=== PATIENT | male | born 1960 | race Caucasian/White ===

== ENCOUNTER → 2017-05-05 | Day surgery (SDC) | payer OTHER ==
[~2017-05-05] MED LIST: ACETAMINOPHEN 1,000 MG/100 ML BTL IV ONE; BUPIVACAINE 0.75% W/EPI MPF 30ML VIAL IVP ONE; CEFAZOLIN 1G VIAL IM ONE; FAMOTIDINE 20MG TABLET PO ONE; HYDROMORPHONE HCL 2 MG/ML VIAL IV ONE; LIDOCAINE 1% W/EPI 1:200,000 MPF 30ML SQ ONE; LIDOCAINE 2% MDV (20MG/ML) 20ML VIAL IV ONE; MECLIZINE 25 MG TABLET PO ONE; METOCLOPRAMIDE 10 MG TABLET PO ONE; MIDAZOLAM HCL 2MG/2ML VIAL IV ONE; PROPOFOL 10 MG/ML VIAL IV ONE; SUFENTANIL CITRATE 50 MCG/ML AMPUL IV ONE; VANCOMYCIN HCL 1,000 MG in 0.9 % SODIUM CHLORIDE 250ML 250 ML IVPB ONE
--- NOTE | 2017-05-05 05:41 | History and Physical Report ---
DATE: 05/04/2017. CHIEF COMPLAINT AND HISTORY OF CHIEF COMPLAINT: This patient presents with a history of a postlumbar laminectomy radiculitis. On 04/13/2016 a spinal cord stimulator was implanted. Although initially this appeared to be doing quite well with respect to his pain, a series of events have resulted in increasing amounts of breakthrough pain. He was evaluated surgically with recommendations of no further spinal surgery but consideration for spinal infusion device or pump. He is here for removal of the stimulator for possible pump implant. PAST MEDICAL HISTORY: Asthmatic bronchitis. PAST SURGICAL HISTORY: Facial surgery, hernia repair, lumbar spinal surgery, stimulator implant. MEDICATIONS ON ADMISSION: To be provided. ALLERGIES: To be provided. FAMILY HISTORY: Asthma, diabetes, hypertension, cancer. SOCIAL HISTORY: Caffeine and smoking. REVIEW OF SYSTEMS: The patient seems appropriate and in no acute distress. The remainder of the systems review shows glasses, dentures, breathing difficulties, degenerative arthritis. PHYSICAL EXAMINATION: General: Height is 5 feet, 9 inches. Weight is 200 pounds. Vital Signs: Not available. HEENT: Within normal limits. Lungs: Clear. Heart: Regular rate and rhythm. Abdomen: Nontender. Musculoskeletal: Examination of the musculoskeletal system shows diffuse tenderness in the lumbar spine with an adjacent laminectomy scar. Range of motion does produce pain moving into both legs, somewhat more right than left. Motor and sensory field function is somewhat difficult to assess on the right and is appropriate and normal on the left. Ambulation: No assistive device utilized. Neurologic: Cranial nerves are intact. IMPRESSION: 1. POSTLUMBAR LAMINECTOMY SYNDROME, ICD-10 CODE M96.1. 2. LUMBAR RADICULITIS, ICD-10 CODE M54.16 AND M54.17. 3. SPINAL CORD STIMULATOR INTERNAL GENERATOR NONFUNCTIONAL. PLAN: The patient is here for removal of a two-lead spinal cord stimulator internal generator. The incisional sites, including the generator at the left posterior gluteal margin, appear to be intact. We will remove the devices on an outpatient basis. All other potential risks, side effects, and complications were reviewed and discussed. JOB NUMBER: [id number] cc: KLAUDIA Pires
--- NOTE | 2017-05-08 07:21 | Operative Note - Ferro ---
DATE OF SURGERY: 05/05/2017. PREOPERATIVE DIAGNOSIS: 1. POSTLUMBAR LAMINECTOMY SYNDROME, ICD-10 CODE M96.1. 2. LUMBAR RADICULITIS, ICD-10 CODE M54.16 AND M54.17. 3. SPINAL CORD STIMULATOR INTERNAL GENERATOR NONFUNCTIONAL. POSTOPERATIVE DIAGNOSIS: 1. POSTLUMBAR LAMINECTOMY SYNDROME, ICD-10 CODE M96.1. 2. LUMBAR RADICULITIS, ICD-10 CODE M54.16 AND M54.17. 3. SPINAL CORD STIMULATOR INTERNAL GENERATOR NONFUNCTIONAL. OPERATION: 1. Incision, subcutaneous dissection, and removal of two implanted spinal cord stimulators. 2. Incision, subcutaneous dissection, and removal of internal generator with connectors. SURGEON: Kenneth Pisano D.O. ANESTHESIA: Local sedation. ANESTHESIA PROVIDER: Tramaine Hines CRNA INDICATION: This patient presents with a history an intractable postlaminectomy radiculitis. He had a spinal cord stimulator implanted a number of years previous. Although it successfully controlled his pain over the last number of months, it failed to appreciably control his primary symptoms. Despite multiple attempts at reprogramming on a conservative level, we were unsuccessful in gaining better stimulation and pain control. He is being considered a possible candidate for a spinal opioid infusion system or pump. He is here for removal of a nonfunctional stimulator and generator. PROCEDURE: Intravenous line, vital sign monitoring, and intravenous sedation. Prepped and draped with sterile technique. The midline incision for the stimulator was infiltrated with local. An incision was made and subcutaneous dissection was conducted to the leads and their anchors. The leads and anchors along with suture were removed intact. At the generator pouch at the left posterior gluteal margin the skin was infiltrated. An incision was made and subcutaneous dissection was conducted to the generator pouch. The generator pouch was opened, and the generator was removed along with its connections. Antibiotic irrigation and Bovie for hemostasis. The incisions were then closed with Vicryl for the fascia and running subcuticular Vicryl for the skin. A Dermabond closure was used to approximate the edges of the wound. He was transported to the recovery room stable, showing no side effects from the procedure or the sedation. When fully awake and alert, he was prepared for discharge. DISCHARGE INSTRUCTIONS: 1. The sites are to remain clean and dry. No showering or bathing in any way that would disrupt dressings. If this happens, contact the clinic. 2. Standard medications are to be resumed including Levaquin the antibiotic 500 mg once a day for 14 days. 3. A prescription was written for an analgesic, [place] 7.5/325 mg, maximum 6 per day, for 1 month. 4. All other instructions were provided, and numbers to contact with problems were given. He was then prepared for discharge. JOB NUMBER: [id number] cc: KLAUDIA Pires
== END | disposition home or self-care (01) ==
LOC: SUR 12:22
PROVIDERS: ATTEND Pain Medicine Interventional Pain Medicine
DX: T85.193A Other mechanical complication of implanted electronic neurostimulator, generator, initial encounter (principal); T85.192A Other mechanical complication of implanted electronic neurostimulator of spinal cord electrode (lead), initial encounter; M96.1 Postlaminectomy syndrome, not elsewhere classified; M54.16 Radiculopathy, lumbar region; M54.17 Radiculopathy, lumbosacral region; E78.00 Pure hypercholesterolemia, unspecified
CPT/HCPCS: 93005; 93010; 63661; 63688; 00300; J3370; J1170; J3490; J0690; J7050

== ENCOUNTER 2017-09-06 13:08 | Day surgery (SDC) | payer OTHER ==
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
[~2017-09-06 13:08] MED LIST changes: -BUPIVACAINE 0.75% W/EPI MPF 30ML VIAL IVP ONE; -CEFAZOLIN 1G VIAL IM ONE; -HYDROMORPHONE HCL 2 MG/ML VIAL IV ONE; +HYDROMORPHONE PF 2MG/ML AMP 0.008 MG in 0.9 % SODIUM CHLORIDE 10ML VIA 0.996 ML IV ONE; +HYDROMORPHONE PF 2MG/ML AMP 4 MG in 0.9 % SODIUM CHLORIDE 500ML 498 ML IV ONE; -LIDOCAINE 1% W/EPI 1:200,000 MPF 30ML SQ ONE; -LIDOCAINE 2% MDV (20MG/ML) 20ML VIAL IV ONE; -MIDAZOLAM HCL 2MG/2ML VIAL IV ONE; -PROPOFOL 10 MG/ML VIAL IV ONE; -SUFENTANIL CITRATE 50 MCG/ML AMPUL IV ONE; -VANCOMYCIN HCL 1,000 MG in 0.9 % SODIUM CHLORIDE 250ML 250 ML IVPB ONE; +VANCOMYCIN HCL 1,000 MG in DEXTROSE 5 % IN WATER 250 ML IVPB ONE
[2017-09-06] MEDS ORDERED: PROPOFOL 10 MG/ML VIAL IV ONE (13:09)
[2017-09-06] MEDS ORDERED: HYDROMORPHONE HCL 2 MG/ML VIAL IV ONE (13:09)
[2017-09-06] MEDS ORDERED: LIDOCAINE 2% MDV (20MG/ML) 20ML VIAL IV ONE (13:09)
[2017-09-06] MEDS ORDERED: LIDOCAINE 1% W/EPI 1:200,000 MPF 30ML SQ ONE (13:09)
[2017-09-06] MEDS ORDERED: BUPIVACAINE 0.5% W/EPI MPF 30 ML VIAL IVP ONE (13:09)
[2017-09-06] MEDS ORDERED: FENTANYL PF 100MCG/2ML VIAL IV ONE (13:09)
[2017-09-06] MEDS ORDERED: MIDAZOLAM HCL 2MG/2ML VIAL IV ONE (13:09)
[2017-09-06] MEDS ORDERED: CEFAZOLIN 1G VIAL IM ONE (13:09)
[2017-09-06] MEDS ORDERED: *PACU ONLY* KETAMINE HCL 10 MG/ML (20ML) VIAL IV ONE (13:09)
[2017-09-06] MEDS ORDERED: DIPHENHYDRAMINE HCL 25 MG CAPSULE PO PRN ×2 (16:57)
[2017-09-06] MEDS ORDERED: HYDROMORPHONE HCL 2 MG/ML VIAL IM PRN ×2 (16:57)
[2017-09-06] MEDS ORDERED: SENNOSIDES/DOCUSATE SODIUM UD CAPSULE PO PRN ×2 (16:57)
[2017-09-06] MEDS ORDERED: ACETAMINOPHEN 325 MG TAB PO PRN ×2 (16:57)
[2017-09-06] MEDS ORDERED: METOCLOPRAMIDE HCL 10 MG/2 ML VIAL IVP PRN (16:57)
[2017-09-06] MEDS ORDERED: TEMAZEPAM 15 MG CAPSULE PO PRN ×2 (16:57)
[2017-09-06] MEDS ORDERED: DIPHENHYDRAMINE HCL IV 50 MG/ML VIAL IVP PRN ×2 (16:57)
[2017-09-06] MEDS ORDERED: HYDROCODONE/APAP 7.5/325MG TABLET PO PRN (16:57)
[2017-09-06] MEDS ORDERED: AL HYDROX/MAG HYDROX 30ML UD PO PRN (16:57)
[2017-09-06] MEDS ORDERED: METOCLOPRAMIDE 10 MG TABLET PO PRN (16:57)
[2017-09-06] MEDS ORDERED: OXYCODONE/APAP 10MG-325MG TABLET PO PRN ×2 (16:57)
[2017-09-06] MEDS ORDERED: NALOXONE 0.4 MG/1 ML VIAL IVP PRN (16:58)
[2017-09-06] MEDS ORDERED: CYCLOBENZAPRINE 10MG TABLET PO PRN (16:59)
[2017-09-06] MEDS: RINGERS SOLUTION,LACTATED 1,000 ML IV SCH (19:21)
--- NOTE | 2017-09-06 19:40 | Operative Note - Ferro ---
DATE OF SURGERY: 09/06/17 PREOPERATIVE DIAGNOSIS: 1. POST LUMBAR LAMINECTOMY SYNDROME, ICD-10 CODE = M96.1. 2. LUMBAR RADICULOPATHY, ICD-10 CODE = M54.16 AND M54.17. SURGERY: 1. FLUOROSCOPIC-GUIDED SPINAL ACCESS AT L3-4. PLACEMENT OF THIN-WALLED SPINAL CATHETER T11-12. 2. DIAGNOSTIC MYELOGRAPHY WITH RADIOLOGIC SUPERVISION AND INTERPRETATION. 3. BOLUS HYDROMORPHONE THROUGH SPINAL CATHETER 0.002 MG SPINAL SPACE. 4. INCISION, SUBCUTANEOUS DISSECTION, AND ANCHORING OF SPINAL CATHETER TO SUPRASPINOUS FASCIA WITH ANCHORING DEVICE AND NONABSORBABLE SUTURE. 5. INCISION, SUBCUTANEOUS DISSECTION, AND CREATION OF SUBCUTANEOUS POUCH AT RIGHT POSTERIOR GLUTEAL MARGIN, A SITE PICKED BY PATIENT FOR THE PROBABLE PUMP IMPLANT. 6. TUNNELING OF MIDLINE SPINAL CATHETER INTO POSTERIOR POUCH, INTERFACE SPINAL CATHETER AT POUCH WITH SECOND CATHETER COMPONENT BY WAY OF CONNECTOR. 7. TUNNELING OF SECONDARY CATHETER COMPONENT 6 CM SUPERIOR EXITING THE SKIN. EXTERNAL CATHETER INTERFACED TO EXTERNAL PUMP SET TO DELIVER HYDROMORPHONE AT 0.08 MG A DAY. 8. CLOSURE OF MIDLINE INCISION WITH VICRYL FOR FASCIAL AND RUNNING SUBCUTICULAR VICRYL FOR SKIN, CLOSURE OF POSTERIOR GLUTEAL POUCH WITH RUNNING NYLON. 9. PLACEMENT OF DRESSING SECURING CATHETER AND ALL CONNECTIONS UNDER STERILE DRESSING. PATIENT TRANSPORTED TO THE RECOVERY ROOM FLAT, PILLOW UNDER HEAD AND KNEES. SURGEON: JUVENTINO MAIN D.O. ANESTHESIA: LOCAL SEDATION. ANESTHESIA PROVIDER: ANAHI ELAM CRNA INDICATIONS: This patient presents with a history of intractable lumbar radiculopathy, which is a post laminectomy syndrome. He has three levels of hardware fusion. Due to the failure of therapy, he is here for a spinal opioid infusion trial to determine if the implantation of a permanent system can be of any value in his pain control. SURGERY: Intravenous line, vital sign monitoring, IV sedation, prepped and draped in sterile technique, patient prone. The spinal interspace at L3-4 was marked, under imaging, skin infiltrated, then a #20 gauge spinal needle beveled with the long axis in a paramedian approach was used to gain entry into the spinal space, under imaging with AP and lateral views. The needle was advanced into the spinal space on the lateral view. With CSF flow, a thin-walled spinal catheter was advanced and the needle positioned at T11-12. Diagnostic myelography was performed. The resulting flow characteristics were smoothly into the space confirming appropriate flow and spinal appropriate characteristics. With this confirmation, a bolus of Hydromorphone at 0.002 mg was given. CSF was still noted coming through the catheter. The catheter was clamped. This stopped CSF leak. The skin above and below the needle infiltrated , incision made, and subcutaneous dissection was conducted to the supraspinous fascia. The needle was removed and the catheter anchored to the supraspinous fascia with an anchoring device and nonabsorbable suture. At the right posterior gluteal margin, a site picked by the patient ultimately for the placement of the pump, skin infiltrated, incision made, and subcutaneous dissection was conducted to form a pouch of suitable depth. A tunneling tool was then used to carry the spinal catheter into the posterior pouch and then the spinal catheter was interfaced with a second catheter component by way of a connector. This second catheter component was tunneled 6 cm superior from this pouch exiting the skin. The external catheter was then interfaced with an external pump set to deliver Hydromorphone at 0.08 mg a day. Once the incisions were closed, the sterile dressing was placed securing the catheter and all connections under sterile dressing. No blood patch was performed. He was transported to the Recovery Room flat, pillow under head and knees and will be monitored flat for four hours and slowly elevated for one. He will have appropriate fluid volume maintained throughout the night. He will stay overnight for observation. DISCHARGE INSTRUCTIONS IN THE MORNIN. The sites to remain clean and dry. No showering or bathing in any way that would disrupt dressings. If it happens, contact the clinic. 2. Standard medications resumed, including Levaquin the antibiotic 500 mg once a day for 14 days. 3. The trial will run 14 days. During this period of time, we will set up three increases, the first within the next two to three days. 4. Spinal opioid side-effects including respiratory depression, nausea, vomiting, constipation, urinary retention, lightheadedness or rash have all been discussed and reviewed. If he develops a spinal headache, he should stay flat and encourage fluids including caffeinated beverages. All other instructions provided, numbers to contact if problems given. He will be discharged in the morning. cc: Jac Pete NP JOB NUMBER: [id number] [facility]
[2017-09-06] MEDS ORDERED: ATORVASTATIN 20 MG TABLET PO SCH (22:00)
[2017-09-07] MEDS: HYDROCODONE/APAP 7.5/325MG TABLET PO PRN ×2 (00:05→06:44)
[2017-09-07] MEDS: RINGERS SOLUTION,LACTATED 1,000 ML IV SCH (00:09)
[2017-09-07] MEDS ORDERED: VANCOMYCIN HCL 1,000 MG in DEXTROSE 5 % IN WATER 250 ML IVPB ONE ×2 (03:00)
--- NOTE | 2017-09-07 20:53 | RADIOLOGY REPORT ---
EXAM: SPINE, 1 VIEW HISTORY: STATUS POST PUMP TRIAL. TECHNIQUE: Single frontal view of the lumbar spine. COMPARISON: Lumbar spine x-ray 04/13/2016. FINDINGS: The spinal catheter has been removed in the interim. Spinal rods and laminectomies of the lower lumbar spine again noted. Soft tissues are unremarkable. JOB NUMBER: [id number] MTDD
== END 2017-09-07 09:15 | disposition home or self-care (01) ==
LOC: SUR 13:08 → MEDSURG 18:41 → SUR 09-07 09:15
PROVIDERS: ATTEND Pain Medicine Interventional Pain Medicine
DX: M96.1 Postlaminectomy syndrome, not elsewhere classified (principal); M54.16 Radiculopathy, lumbar region; M54.17 Radiculopathy, lumbosacral region; E78.00 Pure hypercholesterolemia, unspecified
CPT/HCPCS: 62350; 62362; 01936; 72020; Q9967; J3370; J3010; J1170 ×2; J0690; J7040; J7060; J7120

== ENCOUNTER 2017-09-20 11:36 | Day surgery (SDC) | payer OTHER ==
--- NOTE | 2017-09-20 07:36 | History and Physical Report ---
DATE: 09/20/2017. CHIEF COMPLAINT AND HISTORY OF CHIEF COMPLAINT: This patient presents with an implanted spinal catheter infusion trial with hydromorphone. He presents today for permanent implant. He has achieved greater than 75 percent pain control with no side effects. According to the patient, this is the best he has felt in years. PAST MEDICAL HISTORY: Asthmatic bronchitis. PAST SURGICAL HISTORY: Facial surgery, hernia repair, lumbar spinal surgery. MEDICATIONS ON ADMISSION: To be provided. ALLERGIES: Nonsteroidal anti-inflammatories. SOCIAL HISTORY: Caffeine and smoking. FAMILY HISTORY: Asthma, diabetes, hypertension, cancer. REVIEW OF SYSTEMS: The patient seems appropriate and in no acute distress. The remainder of the systems review shows glasses, dentures, breathing difficulties, degenerative arthritis. PHYSICAL EXAMINATION: General: Height and weight are not known. Vital Signs: Not available. HEENT: Within normal limits. Lungs: Clear. Heart: Regular rate and rhythm. Abdomen: Nontender. Musculoskeletal: Examination of the musculoskeletal system shows the dressings for the internal catheter and the external pump trial. All of the dressings are intact. The external pump is infusing at 0.16 mg per day. His lower extremity functionality shows the postlumbar laminectomy radiculopathy. His motor and sensory field function from previous evaluation is unchanged. Neurologic: Cranial nerves are intact. IMPRESSION: 1. POSTLUMBAR LAMINECTOMY SYNDROME, ICD-10 CODE M96.1. 2. LUMBAR RADICULOPATHY, ICD-10 CODE M54.16 AND M54.17. 3. IMPLANTED SPINAL CATHETER INFUSION TRIAL WITH HYDROMORPHONE. PLAN: The patient has had excellent success of greater than 75 percent, and by his request he is moving to a permanent system. We will remove all of the external components and place a pump in the posterior gluteal margin and interface it to the indwelling catheter. We will consider this procedure outpatient; although an overnight stay will be evaluated. The potential risks, side effects, and complications have all been carefully reviewed and discussed. JOB NUMBER: [id number] cc: Anna Lewis, Nurse Practitioner MALIKA
[~2017-09-20 11:36] MED LIST changes: +HYDROMORPHONE HCL 0.04 GM in 0.9 % SODIUM CHLORIDE 10ML VIA 20 ML IV ONE; +HYDROMORPHONE PF 2MG/ML AMP 0.004 MG in 0.9 % SODIUM CHLORIDE 10ML VIA 0.998 ML IV ONE; -HYDROMORPHONE PF 2MG/ML AMP 0.008 MG in 0.9 % SODIUM CHLORIDE 10ML VIA 0.996 ML IV ONE; -HYDROMORPHONE PF 2MG/ML AMP 4 MG in 0.9 % SODIUM CHLORIDE 500ML 498 ML IV ONE
[2017-09-20] MEDS ORDERED: CEFAZOLIN 1G VIAL IM ONE (11:37)
[2017-09-20] MEDS ORDERED: *PACU ONLY* KETAMINE HCL 10 MG/ML (20ML) VIAL IV ONE (11:37)
[2017-09-20] MEDS ORDERED: LIDOCAINE 1% W/EPI 1:200,000 MPF 30ML SQ ONE (11:37)
[2017-09-20] MEDS ORDERED: FENTANYL PF 100MCG/2ML VIAL IV ONE (11:37)
[2017-09-20] MEDS ORDERED: ONDANSETRON HCL IV 4 MG/2 ML VIAL IVP ONE (11:37)
[2017-09-20] MEDS ORDERED: BUPIVACAINE 0.5% W/EPI MPF 30 ML VIAL IVP ONE (11:37)
[2017-09-20] MEDS ORDERED: PROPOFOL 10 MG/ML VIAL IV ONE (11:37)
[2017-09-20] MEDS ORDERED: LIDOCAINE 2% MDV (20MG/ML) 20ML VIAL IV ONE (11:37)
[2017-09-20] MEDS ORDERED: MIDAZOLAM HCL 2MG/2ML VIAL IV ONE (11:37)
--- NOTE | 2017-09-21 16:25 | Operative Note - Ferro ---
DATE OF SURGERY: 09/20/17 PREOPERATIVE DIAGNOSES: 1. POST LUMBAR LAMINECTOMY SYNDROME, ICD-10 CODE = M96.1. 2. LUMBAR RADICULOPATHY, ICD-10 CODE = M54.16 AND M54.17. 3. IMPLANTED SPINAL CATHETER INFUSION TRIAL HYDROMORPHONE. OPERATION: 1. FLUOROSCOPICALLY-GUIDED INCISION, SUBCUTANEOUS DISSECTION, AND REMOVAL OF EXTERNAL CATHETER. 2. INCISION, SUBCUTANEOUS DISSECTION, AND FORMATION OF SUBCUTANEOUS POUCH AT RIGHT POSTERIOR GLUTEAL MARGIN FOR MARGIN OF PUMP IDENTIFIED A MEDTRONIC 20 ML PROGRAMMABLE. 3. INCISION, SUBCUTANEOUS DISSECTION, AND REVISION OF INDWELLING SPINAL CATHETER. INTERFACE INDWELLING CATHETER TO SECOND CATHETER COMPONENT BY WAY OF CONNECTOR. REVISE CATHETER COMPONENT INTERFACED TO PUMP PLACED ONTO THE FIELD PRE-FILLED HYDROMORPHONE 1 MG PER ML. 4. PLACEMENT OF PUMP INTERFACED TO CATHETER INTO POUCH SECURING TO POSTERIOR FASCIA WITH NONABSORBABLE SUTURE THREE POINTS PUMP EYELETS. 5. PLACEMENT OF CURVED 24-GAUGE MAYNARD NEEDLE INTO ACCESS PORT PROGRAMMABLE PUMP ASPIRATING AND CLEARING CATHETER OF 1 ML OF CATHETER CONTENTS OPIOID AND CSF. 6. DIAGNOSTIC MYELOGRAPHY WITH RADIOLOGIC SUPERVISION AND INTERPRETATION. 7. CLOSURE OF INCISION, VICRYL FOR FASCIA, RUNNING SUBCUTICULAR VICRYL FOR SKIN , DERMABOND CLOSURE. 8. PROGRAMMING OF PUMP TO DELIVER BY CONTINUOUS INFUSION HYDROMORPHONE AT 0.23 MG PER DAY. SURGEON: JUVENTINO MAIN D.O. ANESTHESIA: LOCAL SEDATION. ANESTHESIA PROVIDER: MARLO GOODMAN CRNA INDICATION: This patient with a post laminectomy radiculopathy, has an implanted spinal catheter infusion trial Hydromorphone with 75 to 90% pain control. Due to the failure of all therapies and the success of the trial, he is here for full permanent implant. PROCEDURE: Intravenous line, vital sign monitoring, IV sedation, prepped and draped with sterile technique. Patient position prone. Under imaging, the subcutaneous pouch at the right posterior gluteal margin was identified, skin infiltrated. The running nylon was removed. Incision made and subcutaneous dissection was conducted to form a pouch of suitable size and depth for the pump identified as a Medtronic 20 mL Programmable. The externalized catheter interfaced to the internal catheter was clamped, cut, and the external catheter was removed pulling away from the incision. Further dissection isolating and identifying the indwelling spinal catheter. The indwelling spinal catheter was then resected and revised interfacing with a second catheter component by way of a connector. A pump was then placed onto the field, 20 mL Programmable Medtronic filled with Hydromorphone 1 mg per mL. The revised catheter was then interfaced to the pump. Antibiotic irrigation and Bovie and for hemostasis. The pump was placed into the pouch and secured to the posterior fascia using a nonabsorbable suture at three points pump eyelets. A 24-gauge Maynard needle was inserted into the access port of the pump and 1 mL of catheter contents was aspirated clearing the catheter of opioid and CSF mixture. Diagnostic myelography was then performed through the access port. Contrast was injected. Under imaging, contrast moving to the internal network of the pump. No problems. Contrast moving to pump catheter connection. No obstructions or leaks. Catheter tip at T12/L1 identified with appropriate myelogram flow characteristics noted. Full functionality of the system was then assured. The incision was then closed Vicryl for fascia and a running subcuticular Vicryl for skin. Dermabond closure. The pump was then programmed to deliver by continuous infusion Hydromorphone at 0.230 mg per day. He was transported to the Recovery Room, stable. No side-effects from the procedure or the sedation. When fully awake and alert, he was instructed on the system, provided with information on error messaging, and then prepared for discharge. DISCHARGE INSTRUCTIONS: 1. Sites will remain clean and dry. He may shower when he gets home. Do not scrub the site. Should the dressing come off, he should contact the clinic immediately. 2. Standard medications resumed. He will continue his Keflex for another 7 days. 3. Spinal opioid side-effects; respiratory depression, nausea, vomiting, constipation, urinary retention, lightheadedness or rash have all been discussed and reviewed. All other instructions provided, numbers to contact, problems given. He will be seen in the office in 7-10 days. The office will contact him within the next 2-3 days to set up the appointment. All other instructions provided, numbers to contact, problems given, he was then discharged. cc: Chandrika Pete, Nurse Practitioner JOB NUMBER: [id number] MTDD
== END 2017-09-20 15:19 | disposition home or self-care (01) ==
LOC: SUR 11:36
PROVIDERS: ATTEND Pain Medicine Interventional Pain Medicine
DX: M96.1 Postlaminectomy syndrome, not elsewhere classified (principal); M54.16 Radiculopathy, lumbar region; M54.17 Radiculopathy, lumbosacral region; E78.00 Pure hypercholesterolemia, unspecified; Z86.14 Personal history of Methicillin resistant Staphylococcus aureus infection
CPT/HCPCS: 62350; 62362; 01936; 62367 ×2; Q9967; J2405; J3370; J3010; J1170; C1755; J0690; J7060